=== PATIENT | male | born 1945 | race Caucasian/White ===

== ENCOUNTER 2019-03-02 17:47 | Emergency (ER) | payer MEDICARE, OTHER ==
[~2019-03-02] VITALS: Ht 177.8 cm; Wt 127.3 kg
[~2019-03-02 17:47] MED LIST: Captopril; Creon; DOXAZOSIN; Dexilant; Effient; Exforge; FLECTOR; Fluocinonide; Gabapentin; HUMALOG; Hctz; [UNRECOGNIZED DRUG - OTHER]; ammonium lactate; clotrimazole; hydralazine
[2019-03-02 18:09] VITALS: Ht 177.8 cm; Wt 127.3 kg
--- NOTE | 2019-03-02 19:24 | ERD ---
ER Documentation Chief Complaint Chief Complaint ptRuben GARCIA RA called 911, concerns of existing liver cirhosis HPI 73-year-old male brought in via EMS. A Somali american sign language interpreter was used. The patient states that he was drinking alcohol today. EMS reports that the called 911 because when the patient drinks alcohol at home he acts out and the did not want to deal with him. Patient himself admits to drinking alcohol. He denies any falls, head injury, no hematemesis or melena. The patient has no complaints currently. ROS All systems reviewed and are negative except as per history of present illness. Medications Home Meds Reported Medications [Gabapentin] No Conflict Check 12/23/12 [Fluocinonide] No Conflict Check 12/23/12 [Flector] No Conflict Check 12/23/12 [Exforge] No Conflict Check 12/23/12 [Effient] No Conflict Check 12/23/12 [Doxazosin] No Conflict Check 12/23/12 [Dexilant] No Conflict Check 12/23/12 [Creon] No Conflict Check 12/23/12 [clotrimazole] No Conflict Check 12/23/12 [Captopril] No Conflict Check 12/23/12 [Apridra Solostar] No Conflict Check 12/23/12 [ammonium lactate] No Conflict Check 12/23/12 [hydralazine] No Conflict Check 12/23/12 [Hctz] No Conflict Check 12/23/12 [Humalog] No Conflict Check 12/23/12 Allergies Allergies: Coded Allergies: No Known Allergy (Unverified , 12/23/12) PMhx/Soc History of Surgery: Yes (BYPASS) Anesthesia Reaction: No Hx Neurological Disorder: No Hx Respiratory Disorders: No Hx Cardiac Disorders: No Hx Psychiatric Problems: No Hx Miscellaneous Medical Probl: No Hx Alcohol Use: Yes (ETOH, Vodka) Hx Substance Use: No Hx Tobacco Use: No Smoking Status: Never smoker FmHx Family History: No diabetes Physical Exam Vitals Vital Signs Date Temp Pulse Resp B/P (MAP) Pulse Ox O2 O2 Flow FiO2 Time Delivery Rate 03/02/19 98.2 105 20 126/69 94 18:09 (88) Physical Exam General: Well developed, well nourished, no acute distress Head: Normocephalic, atraumatic. Eyes: Pupils equally reactive, EOM intact ENT: Moist mucous membranes Neck: Supple, no lymphadenopathy Respiratory: Lungs clear bilaterally, no distress Cardiovascular: RRR, no murmurs, rubs, or gallops Abdominal: Soft, non-tender, non-distended, no peritoneal signs : Deferred MSK: No edema, no unilateral swelling, 5/5 strength Neurologic: Alert and oriented, moving all extremities, normal speech, no focal weakness, no cerebellar signs Skin: No rash Psych: Normal mood Procedures/MDM EKG, MONITORS, & DIAGNOSTIC IMAGING: [None Required] PROCEDURES: [None Required] MEDICAL DECISION MAKING: The patient's presentation is consistent with mild acute alcohol intoxication I have a much lower clinical concern for clinically significant traumatic brain injury, meningitis, significant electrolyte disturbance. The patient's workup will include a medical screening examination as well as observation for sobriety. The patient's presentation is most consistent with acute alcohol intoxication leading to acute encephalopathy. The patient is protecting their airway. The patient has no signs or symptoms concerning for impending respiratory failure and does not require intubation at this time. The patient will require observation in the emergency room to allow for metabolization. Once the patient is able to ambulate on their own accord, navigate the community the patient can be safely discharged from the emergency room. ER COURSE: * The patient's arrived to the emergency room. Using an american sign language interpreter it was explained to her that the patient has mild intoxication but has no evidence of emergent medical condition. The patient can be safely discharged. She states that she does not want to take care of him and left the emergency room. * The patient only has mild intoxication without signs of endorgan dysfunction or acute medical emergency. * We do not have a discharge plan. director of volunteer services have been consulted. CONSULTATION: [None] DISPOSITION PLAN: Pending rn social services for disposition Departure Diagnosis: Primary Impression: Alcohol intoxication Complication of substance-induced condition: uncomplicated Qualified Codes: F10.920 - Alcohol use, unspecified with intoxication, uncomplicated Condition: Stable Patient Instructions: Alcohol Abuse Referrals: COMMUNITY CLINICS YOU HAVE RECEIVED A MEDICAL SCREENING EXAM AND THE RESULTS INDICATE THAT YOU DO NOT HAVE A CONDITION THAT REQUIRES URGENT TREATMENT IN THE EMERGENCY DEPARTMENT. FURTHER EVALUATION AND TREATMENT OF YOUR CONDITION CAN WAIT UNTIL YOU ARE SEEN IN YOUR DOCTORS OFFICE WITHIN THE NEXT 1-2 DAYS. IT IS YOUR RESPONSIBILITY TO MAKE AN APPOINTMENT FOR FOLOW-UP CARE. IF YOU HAVE A PRIMARY DOCTOR --you should call your primary doctor and schedule an appointment IF YOU DO NOT HAVE A PRIMARY DOCTOR YOU CAN CALL OUR PHYSICIAN REFERRAL HOTLINE AT IF YOU CAN NOT AFFORD TO SEE A PHYSICIAN YOU CAN CHOSE FROM THE FOLLOWING [facility] [address] [facility] [address] [facility] [address] [facility] [address] [facility] [address] [facility] [address] [facility]. [facility] YOU HAVE RECEIVED A MEDICAL SCREENING EXAM AND THE RESULTS INDICATE THAT YOU DO NOT HAVE A CONDITION THAT REQUIRES URGENT TREATMENT IN THE EMERGENCY DEPARTMENT. FURTHER EVALUATION AND TREATMENT OF YOUR CONDITION CAN WAIT UNTIL YOU ARE SEEN IN YOUR DOCTORS OFFICE WITHIN THE NEXT 1-2 DAYS. IT IS YOUR RESPONSIBILITY TO MAKE AN APPOINTMENT FOR FOLOW-UP CARE. IF YOU HAVE A PRIMARY DOCTOR --you should call your primary doctor and schedule and appointment IF YOU DO NOT HAVE A PRIMARY DOCTOR YOU CAN CALL OUR PHYSICIAN REFERRAL HOTLINE AT . IF YOU CAN NOT AFFORD TO SEE A PHYSICIAN YOU CAN CHOSE FROM THE FOLLOWING [facility]: [facility] [id number] [place] [address] [facility] [address] [place] [address] [facility] [address] [place] [address] Additional Instructions: Call your primary care doctor TOMORROW for an appointment during the next 1 WEEK.Tell the assistant secretary that you were referred from this facility.See the doctor sooner or return here if your condition worsens before your appointment time. KEATON CARR MD Mar 02, 2019 19:24
[2019-03-02 20:40] VITALS: BP 133/68; PULSE 87; RESP 20
== END 2019-03-02 21:21 | disposition home or self-care (01) ==
LOC: E/R 17:47
DX: F10.920 Alcohol use, unspecified with intoxication, uncomplicated (principal)
CPT/HCPCS: 99283